=== PATIENT | male | born 1950 | race Caucasian/White ===

== ENCOUNTER 2017-06-14 16:03 | Emergency (ER) | payer MEDICARE, OTHER ==
[2017-06-14 16:38] LABS: #Basophils 0.1 thou/uL (0.0-0.2); #Eosinphils 0.1 thou/uL (0.0-0.7); #Lymphocytes 2.7 thou/uL (1.20-3.40); #Monocytes 0.9 thou/uL (0.11-0.59); %Basophils 0.9 % (0.0-1.0); %Eosinophils 0.8 % (0.0-10.0); %Lymphocytes 27.9 % (21.0-51.0); %Monocytes 9.1 % (0.0-10.0); Hematocrit 48.7 % (42.0-52.0); Mean Platelet Volume 7.4 fL (7.4-10.4); Red Blood Cell (RBC) Count 5.16 mill/uL (4.70-6.10); White Blood Cell (WBC) Count 9.8 thou/uL (4.8-10.8)
[2017-06-14 17:05] LABS: ALT (SGPT) 24 U/L (8-55); AST (SGOT) 18 U/L (5-34); Alkaline Phosphatase 79 U/L (40-150); Anion Gap 14 mmol/L (10-20); BUN (Urea Nitrogen) 15 mg/dL (8.4-25.7); Bilirubin, Total 0.4 mg/dL (0.2-1.2); Calc. Creatinine Clearance 0 mL/min (70-130); Carbon Dioxide 26 mmol/L (23-31); Chloride 101 mmol/L (98-107); Estimated GFR-MDRD 59; Globulin 3.9 g/dL (2.4-3.5); Protein, Total 8.4 g/dL (5.8-8.1)
[2017-06-14 17:09] LABS: Troponin I Less than 0.010 ng/mL (< 0.028)
[2017-06-14] MEDS ORDERED: Acetaminophen 325 MG TAB ONE (18:07)
--- NOTE | 2017-06-14 18:28 | CT ---
CT HEAD WITHOUT CONTRAST 06/14/17 COMPARISON: None. HISTORY: Hypertension, blurred vision and headache. TECHNIQUE: Serial axial CT imaging at 5 mm intervals from the vertex through the skull base without contrast. FINDINGS: There is polypoid mucosal thickening involving the maxillary sinus on the right. No displaced calvarial fracture. No intracranial hemorrhage, midline shift, mass effect or ventricul ar enlargement. IMPRESSION: No intracranial hemorrhage. POS: [facility]
--- NOTE | 2017-08-03 15:24 | EKG ---
Test Reason : Blood Pressure : / mmHG Vent. Rate : 062 BPM Atrial Rate : 062 BPM P-R Int : 124 ms QRS Dur : 094 ms QT Int : 394 ms P-R-T Axes : 057 096 055 degrees QTc Int : 399 ms Normal sinus rhythm Rightward axis Borderline ECG Confirmed by ANISH SHARP M.D. ([id number]), make up editor JUAN MSOCOSO ([id number] on 08/03/2017 3:24:18 PM Referred By: Confirmed By:ANISH SHARP M.D.
== END 2017-06-14 18:30 | disposition home or self-care (01) ==
LOC: ERS 16:03
DX: I10 Essential (primary) hypertension (principal); H53.9 Unspecified visual disturbance; F41.9 Anxiety disorder, unspecified
CPT/HCPCS: 36415; 70450; 80053; 82553; 84484; 85025; 93005

== ENCOUNTER 2017-08-17 12:21 | Emergency (ER) | payer MEDICARE, OTHER ==
[2017-08-17 13:03] LABS: #Basophils 0.1 thou/uL (0.0-0.2); #Eosinphils 0.1 thou/uL (0.0-0.7); #Lymphocytes 2.1 thou/uL (1.20-3.40); #Monocytes 0.8 thou/uL (0.11-0.59); #Neutrophils 7.1 thou/uL (1.40-6.50); %Basophils 0.6 % (0.0-1.0); %Eosinophils 0.8 % (0.0-10.0); %Lymphocytes 20.8 % (21.0-51.0); %Monocytes 7.8 % (0.0-10.0); Hemoglobin 14.7 g/dL (14.0-18.0); Mean Corpuscular HGB CONC 33.3 g/dL (32.0-36.0); Mean Corpuscular Hemoglobin 31.4 pg (27.0-31.0); Mean Corpuscular Volume 94.4 fl (80.0-94.0); Mean Platelet Volume 7.3 fL (7.4-10.4); Platelet Count 291 thou/uL (130-400); RBC Distribution Width 12.5 % (11.5-14.5); Red Blood Cell (RBC) Count 4.67 mill/uL (4.70-6.10); White Blood Cell (WBC) Count 10.1 thou/uL (4.8-10.8)
[2017-08-17 13:32] LABS: ALT (SGPT) 23 U/L (8-55); AST (SGOT) 18 U/L (5-34); Albumin 4.1 g/dL (3.4-4.8); Alkaline Phosphatase 65 U/L (40-150); Anion Gap 14 mmol/L (10-20); BUN (Urea Nitrogen) 13 mg/dL (8.4-25.7); Bilirubin, Total 0.6 mg/dL (0.2-1.2); CK (CPK) 97 U/L (30-200); Calc. Creatinine Clearance 0 mL/min (70-130); Carbon Dioxide 24 mmol/L (23-31); Chloride 107 mmol/L (98-107); Estimated GFR-MDRD 59; Globulin 3.4 g/dL (2.4-3.5); Glucose 124 mg/dL (80-115); Potassium 4.1 mmol/L (3.5-5.1); Protein, Total 7.5 g/dL (5.8-8.1); Sodium 141 mmol/L (136-145)
[2017-08-17 13:35] LABS: CKMB 0.7 ng/mL (0-6.6); Troponin I Less than 0.010 ng/mL (< 0.028)
--- NOTE | 2017-08-17 14:09 | RAD ---
TWO VIEW CHEST: HISTORY: Chest pain. Hypertension. FINDINGS: Lung platt are clear. Heart and mediastinum appear normal. IMPRESSION: No acute finding. POS: [facility]
[2017-08-17 16:51] LABS: Troponin I Less than 0.010 ng/mL (< 0.028)
== END 2017-08-17 17:12 | disposition home or self-care (01) ==
LOC: ERS 12:21
DX: I10 Essential (primary) hypertension (principal); F41.9 Anxiety disorder, unspecified; Z79.899 Other long term (current) drug therapy
CPT/HCPCS: 36415; 71046; 80053; 82550; 82553; 84484; 85025; 93005

== ENCOUNTER 2018-07-10 06:52 | Outpatient (CLI) | payer MEDICARE, OTHER ==
--- NOTE | 2018-07-10 07:52 | ULT ---
ABDOMINAL AORTIC ULTRASOUND: Date: 07/10/18 HISTORY: 68-year-old male with history for screening for abdominal aortic aneurysm. FINDINGS: There are some atherosclerotic plaques involving the abdominal aorta, but no evidence for significant aneurysm. Bifurcation regions unremarkable. Visualized right and left common iliac arteries unremark able. IMPRESSION: No evidence for abdominal aortic aneurysm. Atherosclerosis of the aorta. POS: [facility]
== END 2018-07-10 06:53 | disposition home or self-care (01) ==
LOC: BICULT 06:52
PROVIDERS: ATTEND Family Medicine
DX: Z87.891 Personal history of nicotine dependence (principal); I70.0 Atherosclerosis of aorta
CPT/HCPCS: 76775

== ENCOUNTER 2019-02-16 13:00 | Outpatient (CLI) | payer MEDICARE, OTHER ==
--- NOTE | 2019-02-16 14:03 | ULT ---
Exam: Bilateral renal ultrasound complete: Exam includes vascular duplex with color and spectral Doppler im aging: HISTORY: Hypertension COMPARISON: None FINDINGS: Right kidney: 11.3 x 7.5 x 4.7 cm Left kidney: 11.3 x 7.0 x 5.5 cm No renal hydronephrosis. No evidence for abnormal perinephric process. 0.8 x 0.9 x 1.0 cm cortical cyst of the left kidney. Unremarkable appearing bladder. No evidence for abnormal increased renal artery velocities. Resistive indices are normal bilaterally. Renal artery/aortic ratios are normal bilaterally. IMPRESSION: No renal hydronephrosis. Small left renal cortical cyst. No evidence for significant renal artery joseph nosis.
== END 2019-02-16 13:01 | disposition home or self-care (01) ==
LOC: BICULT 13:00
PROVIDERS: ATTEND Family Medicine
DX: I10 Essential (primary) hypertension (principal); N28.1 Cyst of kidney, acquired
CPT/HCPCS: 76700; 76770